=== PATIENT | female | born 1970 | race Two or more races ===

== ENCOUNTER 2017-10-18 07:56 | Outpatient (CLI) | payer OTHER | END 2017-10-18 08:04 | disposition home or self-care (01) | LOC: LAB 07:56 | DX: D64.9 Anemia, unspecified (principal); N39.0 Urinary tract infection, site not specified; R10.9 Unspecified abdominal pain; E03.9 Hypothyroidism, unspecified; E78.5 Hyperlipidemia, unspecified; R80.9 Proteinuria, unspecified; E11.9 Type 2 diabetes mellitus without complications; R73.09 Other abnormal glucose; I11.9 Hypertensive heart disease without heart failure; R73.02 Impaired glucose tolerance (oral); E78.2 Mixed hyperlipidemia ==

== ENCOUNTER 2017-10-20 13:15 | Outpatient (CLI) | payer OTHER | END 2017-10-20 14:00 | disposition home or self-care (01) | LOC: NUCLEAR 13:15 | DX: C73 Malignant neoplasm of thyroid gland (principal) | CPT/HCPCS: 78018; 78020; A9528 ==

== ENCOUNTER 2022-02-11 05:30 | Day surgery (SDC) | payer OTHER ==
[~2022-02-11 05:30] MED LIST: ALDACTONE50 MG PO; ALPRAZOLAM XR2 MG PO; GABAPE PO; PANTOPRAZOLE SO40 M2 PO; SERTRA PO; SYNTH PO; VITAMIN D PO
== END 2022-02-11 15:00 | disposition home or self-care (01) ==
LOC: CIR.AMB 05:30
PROVIDERS: ATTEND Anesthesiology Pain Medicine
DX: M51.36 Other intervertebral disc degeneration, lumbar region (principal); M43.16 Spondylolisthesis, lumbar region; M54.17 Radiculopathy, lumbosacral region; I10 Essential (primary) hypertension; F17.210 Nicotine dependence, cigarettes, uncomplicated; R20.2 Paresthesia of skin; Z88.6 Allergy status to analgesic agent; Z91.041 Radiographic dye allergy status; Z91.040 Latex allergy status